=== PATIENT | male | born 1980 | race Caucasian/White ===

== ENCOUNTER 2017-01-29 14:56 | Emergency (ER) | payer OTHER ==
--- NOTE | ~2017-01-29 | CR94 ---
[facility] A Service of [facility] RADIOLOGY TEXT RESULTS PATIENT: LEO ALVES LOCATION: SED : 76 UNIT #: [id number] AGE: [address]: Giselle Mullen APRN SEX: M ORDER DR: [id number] [place] [id number] E MR#: [id number] Acc #: [id number] NAME: LEO ALVES : 1980 SEX: M STUDY DATE/TIME: 01/29/2017 14:42 UNIT: SED ROOM: STUDY DESCRIPTION: CR Elbow Min 3 Views Rt Attending Physician: Giselle Mullen A.P.R.N. Ordering Physician: Giselle Mullen A.P.R.N. Primary Care Physician: Primary Care Physician No MEDICAL IMAGING REPORT This report is preliminary unless electronic signature is present. EXAM Right elbow HISTORY Right elbow pain for 3 days. FINDINGS AP and lateral examination of the elbow shows satisfactory articulation of the humerus with the proximal radius and ulna. There is no identifiable fracture, dislocation, joint effusion, or radiopaque foreign body in the soft tissues. IMPRESSION Normal elbow. Dictated by... Luke Walls M.D. THIS IS AN ELECTRONICALLY VERIFIED REPORT Luke Walls M.D. at 01/30/2017 7:13 AM Marian TD: 01/29/2017 16:30 JOB #: [id number] MEDICAL IMAGING REPORT Page 1 of 1
[~2017-01-29 14:56] MED LIST: NO MEDICATIONS
[2017-04-07] MEDS ORDERED: LIPITOR20 MG PO (11:50)
[2017-04-07] MEDS ORDERED: METOPROLOL SUCC50 MG PO (11:50)
[2017-04-07] MEDS ORDERED: NAPROSYN500 MG PO (11:51)
== END 2017-01-29 16:31 | disposition home or self-care (01) ==
LOC: SED 14:56
DX: M70.88 Other soft tissue disorders related to use, overuse and pressure other site (principal); I10 Essential (primary) hypertension; K21.9 Gastro-esophageal reflux disease without esophagitis; F17.210 Nicotine dependence, cigarettes, uncomplicated
CPT/HCPCS: 29260; 73080; 99283

== ENCOUNTER 2017-02-17 07:26 | Emergency (ER) | payer OTHER ==
[2017-04-07] MEDS ORDERED: LIPITOR20 MG PO (11:50)
[2017-04-07] MEDS ORDERED: METOPROLOL SUCC50 MG PO (11:50)
[2017-04-07] MEDS ORDERED: NAPROSYN500 MG PO (11:51)
== END 2017-02-17 08:04 | disposition home or self-care (01) ==
LOC: SED 07:26
DX: K62.5 Hemorrhage of anus and rectum (principal); I10 Essential (primary) hypertension; F10.10 Alcohol abuse, uncomplicated
CPT/HCPCS: 99283

== ENCOUNTER 2017-04-16 12:46 | Emergency (ER) | payer OTHER ==
--- NOTE | ~2017-04-16 | EKG ---
PATIENT: LEO ALVES UNIT #: [id number] Ventricular Rate: 95 BPM Atrial Rate: 95 BPM P-R Interval: 158 ms QRS Duration: 94 ms Q-T Interval: 356 ms QTC Calculation(Bezet): 447 ms P Hamlet: 39 degrees Calculated R Hamlet: 73 degrees Calculated T Hamlet: 42 degrees Diagnosis Line: Normal sinus rhythm Diagnosis Line: Normal ECG Diagnosis Line: No previous ECGs available Diagnosis Line: Confirmed by FELICE SEGAL MD ([id number]) on Diagnosis Line: 04/18/2017 7:28:25 AM INTERPRETING MD: PHILIPP TOMLINSON
--- NOTE | ~2017-04-16 | CT16 ---
[facility] A Service of [facility] RADIOLOGY TEXT RESULTS PATIENT: LEO ALVES LOCATION: [facility] : [birth year] UNIT #: [id number] AGE: [address]: Britt Garcia SEX: M ORDER DR: [id number] [facility] [address] [place], [place] [address] [id number] E MR#: [id number] Acc #: [id number] NAME: LEO ALVES : 1980 SEX: M STUDY DATE/TIME: 04/16/2017 15:40 UNIT: [facility] ROOM: STUDY DESCRIPTION: CT Angio Chest for PE Attending Physician: Britt Garcia P.A.-C. Ordering Physician: Britt Garcia P.A.-C. Primary Care Physician: Peter Rogers M.D. MEDICAL IMAGING REPORT This report is preliminary unless electronic signature is present EXAM CT chest with pulmonary embolus protocol HISTORY Elevated D-Dimer and shortness of air beginning today. TECHNIQUE This CT exam was performed with one or more of the following radiation dose reduction techniques: automatic control, adjustment of mA and/or kV according to patient size, and iterative reconstruction. FINDINGS Patient was given 80 mL of Isovue 370 and spiral imaging was performed through the chest. 3-D reconstructions of the pulmonary arteries were generated. There is adequate opacification of the pulmonary arteries and there is no CT evidence of pulmonary embolus. The aorta is normal in size and there is no dissection. There is no mediastinal or hilar adenopathy. The visualized thyroid gland is normal. The lungs are clear. The bones are unremarkable. IMPRESSION Normal study. No CT evidence of pulmonary embolus. Dictated by... Luke Walls M.D. THIS IS AN ELECTRONICALLY VERIFIED REPORT [facility] A Service [facility] RADIOLOGY TEXT RESULTS PATIENT: LEO ALVES LOCATION: [facility] : [birth year] UNIT #: [id number] AGE: [address]: Britt Garcia SEX: M ORDER DR: Luke Walls M.D. at 04/17/2017 7:37 AM MAGGIE/kay TD: 04/16/2017 23:31 JOB #: [id number] MEDICAL IMAGING REPORT Page 1 of 1 COPY
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
--- NOTE | ~2017-04-16 | CR72 ---
[facility] A Service of [facility] RADIOLOGY TEXT RESULTS PATIENT: LEO ALVES LOCATION: [facility] : 76 UNIT #: [id number] AGE: [address]: Britt Garcia SEX: M ORDER DR: [id number] [facility] [address] [place], [place] [address] [id number] E MR#: [id number] Acc #: [id number] NAME: LEO ALVES : 1980 SEX: M STUDY DATE/TIME: 04/16/2017 13:25 UNIT: [facility] ROOM: STUDY DESCRIPTION: CR Chest Single View Portable Attending Physician: Britt Garcia P.A.-C. Ordering Physician: Britt Garcia P.A.-C. Primary Care Physician: Peter Rogers M.D. MEDICAL IMAGING REPORT This report is preliminary unless electronic signature is present EXAM Chest portable 04/16/2017 at 13:25 hours HISTORY A 36-year-old with complaint of shortness of air and nausea with daily ethanol use. COMPARISON None. FINDINGS Portable upright chest demonstrates normal cardiac, mediastinal, and aortic contours. The lungs are mildly hyperinflated but clear. No effusions. IMPRESSION Mild pulmonary hyperinflation. No acute cardiopulmonary findings. Dictated by... Zora Blevins M.D. THIS IS AN ELECTRONICALLY VERIFIED REPORT Zora Blevins M.D. at 04/16/2017 9:03 PM FABIAN/rashi TD: 04/16/2017 20:38 JOB #: [id number] MEDICAL IMAGING REPORT Page 1 of 1 COPY
[~2017-04-16 12:46] MED LIST changes: +LIPITOR20 MG PO; +METOPROLOL SUCC50 MG PO; +NAPROSYN500 MG PO
[2017-04-16 13:57] LABS: BASOPHIL# 0.1 X10e3 (0-0.3); EOSINOPHIL# 0.1 X10e3 (0-0.7); EOSINOPHIL% 2.2 % (0.0-7.0); HEMATOCRIT 45.8 % (38.0-50.0); HEMOGLOBIN 15.3 gm/dL (13.0-16.0); LYMPHOCYTE# 2.2 X10e3 (1.0-3.5); LYMPHOCYTE% 43.1 % (17.0-45.0); MEAN CELL VOLUME 95.7 FL (83-96); MEAN CORPUSCULAR HGB CONC 33.4 g/dL (30-36); MONOCYTE# 0.5 X10e3 (0-1.0); MONOCYTE% 9.4 % (3.0-12.0); NEUTROPHIL# 2.2 X10e3 (1.5-7.1); NEUTROPHIL% 43.3 % (40-75); PLATELET COUNT 112 X10e3 (140-420); RED BLOOD COUNT 4.78 X10e (3.90-5.60); WHITE BLOOD COUNT 5.1 X10e3 (4.0-10.5)
[2017-04-16 14:11] LABS: DIFF IND NO
[2017-04-16 14:19] LABS: BILIRUBIN, DIRECT 0.4 mg/dL (0.0-0.2); BILIRUBIN,INDIRECT 1.6 mg/dL (0.0-0.9); BUN/CREATININE RATIO 12.85; CALCIUM SERUM 9.3 mg/dL (8.4-10.2); CREATININE SERUM 0.7 mg/dL (0.6-1.4); GLOM FILT RATE Estimated 119.8 mL/min (>60); POTASSIUM 3.6 mmol/L (3.5-5.1); PROTEIN TOTAL SERUM 8.5 g/dL (6.0-8.3)
[2017-04-16 14:23] LABS: POC - CKMB 4.5 ng/mL (0.0-7.9); POC - TROPONIN <0.05 ng/mL (<=0.05)
[2017-04-16 16:55] LABS: POC - CKMB 3.2 ng/mL (0.0-7.9); POC - TROPONIN <0.05 ng/mL (<=0.05)
== END 2017-04-16 17:14 | disposition home or self-care (01) ==
LOC: CED 12:46
PROVIDERS: Physician Assistant
DX: R06.02 Shortness of breath (principal); R11.2 Nausea with vomiting, unspecified; F17.210 Nicotine dependence, cigarettes, uncomplicated
CPT/HCPCS: 36415; 71010; 71275; 74177; 80048; 80076; 82553; 83690; 84484; 85025; 85379; 93005; 96361; 96374; 96375; 99285; C9113; J2060; Q9967